=== PATIENT | female | born 1990 | race Caucasian/White ===

== ENCOUNTER → 2020-12-04 | Outpatient (CLI) | payer OTHER ==
[~2020-12-04] MED LIST: BREO ELLIPTA 11 EACH INH; COLACE100 MG PO; CYCLOBENZAPRINE5 MG PO; IBUPROFEN800 MG PO; LINZESS290 MCG PO; MACROBID 100 M100 MG PO; METOPROLOL ER PO; MIRALAX PO; NORCO 5-325 TA1 EACH PO; PREVACID30 MG PO; PROTONIX40 MG PO
== END ==
LOC: EMI 09:00 → MRI 09:00
DX: R42 Dizziness and giddiness (principal); R20.2 Paresthesia of skin
CPT/HCPCS: 36415; 70553; 72156; 82565; A9577

== ENCOUNTER 2021-03-22 12:14 | Emergency (ER) | payer OTHER | END 2021-03-22 15:05 | disposition left against medical advice (07) | LOC: ER1 12:14 | DX: Z53.21 Procedure and treatment not carried out due to patient leaving prior to being seen by health care provider (principal) | CPT/HCPCS: 93005 ==